=== PATIENT | male | born 1990 | race Caucasian/White ===

== ENCOUNTER 2021-09-20 15:01 | Emergency (ER) | payer OTHER, SELFPAY ==
--- NOTE | ~2021-09-20 | XR_ITS ---
EXAMINATION: XR shoulder LT min 2V EXAM DATE: 09/20/2021 15:51 INDICATION: Fall off [facility], TECHNIQUE: The following left shoulder projections obtained: frontal projection with internal rotatio n, frontal projection with external rotation, Gras[place], and axillary (4+ views). There is no prior st udy for comparison. FINDINGS: No evidence of left shoulder rotator cuff calcific tendinosis. There is moderate left acr omioclavicular joint osteoarthritis. The glenohumeral joint is unremarkable. There are no acute fract ures or dislocations identified. There is no subcutaneous gas. The soft tissue is unremarkable. T here are no radiopaque foreign bodies. IMPRESSION: 1. XR shoulder LT min 2V exam without acute osseous findings. 2. Moderate left acromioclavicular joint osteoarthritis. Reviewed, dictated and finalized at location .
--- NOTE | 2021-09-20 15:05 | ED.UPPEXIN ---
HPI - Extremity Injury (Upper) General Chief Complaint: Extremity Injury, Upper Stated Complaint: left shoulder injury Time Seen by Provider: 09/20/21 15:06 Source: patient and RN notes reviewed History of Present Illness HPI narrative: Patient is a 31-year-old male who presents the urgent care with complaints of left shoulder pain and requesting staple removal from the head. Patient states that he fell through a rotted balcony at his home on Thursday. Patient states is the second story balcony. Patient was seen at [facility] and had a CT of his chest and shoulder. Patient states that the CT scans were apparently negative and they sent him on his way with pain medication. Patient states he has been trying not to take the pain medication and has been suffering through it . Patient states that on his paperwork he was supposed to have a sling however was not given one at discharge. Patient also states that his main concern is he has been unable to follow-up with an orthopedic and his PCP will not see him due to insurance changes. No other acute complaints. Patient does look visibly in pain. Patient aware of the plan of care. Some parts of this dictation were generated by voice recognition software and may contain typographical and/or grammatical inaccuracies. Related Data Home Medications Medication Instructions Recorded Confirmed hydrocodone-acetaminophen [Vicodin] 1 tablet PO Q4-6H PRN 09/20/21 09/20/21 Allergies Allergy/AdvReac Type Severity Reaction Status Date / Time No Known Allergies Allergy Verified 09/20/21 15:42 Review of Systems Review of Systems: CONSTITUTIONAL: Denies fever, chills, or sweats. EYES: Denies visual changes, redness, or discharge. ENT: Denies rhinorrhea, congestion, sore throat, or otalgia. CARDIOVASCULAR: Denies chest pain, palpitations, or edema. RESPIRATORY: Denies cough or dyspnea. GASTROINTESTINAL: Denies abdominal pain, nausea, vomiting, or diarrhea. GENITOURINARY: Denies dysuria or hematuria. SKIN: Reports of diana to the head. Denies rash or itching. MUSCULOSKELETAL: Reports of left shoulder pain NEUROLOGIC: Denies headache, numbness, or weakness. All other systems reviewed are negative, except as documented in HPI. PMFSH Comments At the time of my signature, I reviewed and agree with the nursing past medical, surgical, social, and family history. There is no relevant family history pertinent to the patient complaint. Exam Narrative: GENERAL: This is a well-nourished, well-developed patient, in no apparent distress. HEAD: normocephalic, atraumatic. EYES: PERRL. Sclera clear/white. Vision is grossly intact. EARS: External ears normal NOSE: External nose normal with no obvious nasal discharge, nares without redness, no rhinorrhea. THROAT: Mucous membranes moist NECK: Neck supple CARDIOVASCULAR: Regular rate and rhythm without murmurs, gallops, or rubs. RESPIRATORY: Clear to auscultation. Breath sounds equal bilaterally. No wheezes, rales, or rhonchi. SKIN: Abrasions noted to the posterior left shoulder. 3 diana noted to the frontal scalp. Warm, intact with no suspicious lesions or rash, good texture and turgor. NEURO: awake, alert, and oriented to person, place and time. There were no obvious focal neurologic abnormalities. EXTREMITIES: Difficulty with any movement to the left upper extremity. Patient able to make a straight arm but otherwise unable to lift the left shoulder without extreme pain. Therefore range of motion not tested due to pain. Positive strong left radial pulse with capillary refill less than 2 seconds. No obvious deformity however notable edema noted to the frontal aspect of the left shoulder. Course Course Level of Care: Express Care Visit Vital Signs Vital signs: Vital Signs Temperature 100.3 F H 09/20/21 15:19 Pulse Rate 86 09/20/21 15:19 Respiratory Rate 20 09/20/21 15:19 Blood Pressure 139/84 09/20/21 15:19 Pulse Oximetry 98 09/20/21
[2021-09-20 15:19] VITALS: BP 139/84; PULSE 86; RESP 20; TEMP 37.9; O2SAT 98
== END 2021-09-20 16:24 | disposition home or self-care (01) ==
PROVIDERS: Emergency Provider Nurse Practitioner Family
DX: S01.01XD Laceration without foreign body of scalp, subsequent encounter (principal); X58.XXXD Exposure to other specified factors, subsequent encounter; S40.012A Contusion of left shoulder, initial encounter; W13.0XXA Fall from, out of or through balcony, initial encounter; M19.012 Primary osteoarthritis, left shoulder
CPT/HCPCS: 73030; 99213; G0463